=== PATIENT | female | born 1950 | race Caucasian/White ===

== ENCOUNTER → 2019-08-08 10:26 | Outpatient (CLI) | payer MEDICARE, OTHER, SELFPAY ==
--- NOTE | 2019-08-08 | DI.NM.S_ITS ---
PROCEDURE: NM BONE SCAN WHOLE BODY RADIOPHARMACEUTICAL: 21.4 mCi Tc-99m MDP IV. INDICATIONS: Pain due to internal orthopedic prosthetic devices TECHNIQUE: Delayed whole-body scintigrams were obtained approximately 3-4 hours after intravenous injection of radiotracer. Anterior and posterior views were acquired from vertex to feet. Additional left and right oblique views of the pelvis were obtained. COMPARISON: [facility] [place], [place], XR PELVIS WITH LATERAL HIP LEFT, 07/30/2019, 11:47. FINDINGS: Over the axial and appendicular skeleton no acute disease is found. There is, however, asymmetric hip joint isotope uptake along the acetabulum, mild on the right where mild hip joint osteoarthritis is present on plain film imaging dated 07/30/19. There also is an asymmetric increased prominence of bone scan isotope uptake along the acetabular borders of the left total hip arthroplasty, but not along the femoral component of this prosthetic device. Overall, the appearance is most consistent with reactive change along the acetabular component without evidence of femoral component loosening or adjacent infection. IMPRESSION: Expected mild osteoarthritic isotope uptake at the right hip. Asymmetric prominence of isotope uptake at the left hip in this patient with left total hip arthroplasty. No abnormal isotope uptake along the margins of the femoral component of the arthroplasty. The likelihood of infection producing the abnormality seen along the acetabular component without any femoral involvement is considered relatively low. Some degree of mobility of the acetabular component within the ely shoshone acetabulum is the likely cause for this degree of isotope uptake, however. Dictated by: Keenan Padilla M.D. on 08/08/2019 at 17:09 Approved by: Keenan Padilla M.D. on 08/08/2019 at 17:15
== END ==
PROVIDERS: PCP Family Medicine; Referring Provider Orthopaedic Surgery; Visit Provider Orthopaedic Surgery
DX: T84.84XA Pain due to internal orthopedic prosthetic devices, implants and grafts, initial encounter (principal); M16.11 Unilateral primary osteoarthritis, right hip
CPT/HCPCS: 78306; A9503

== ENCOUNTER → 2019-08-13 09:50 | Outpatient (CLI) | payer MEDICARE, OTHER, SELFPAY ==
[2019-08-13 09:59] LABS: Bacteria Urine None Seen; WBC Urine None Seen (0-5/HPF)
[2019-08-13 10:57] LABS: Hemoglobin A1C% w Est Avg Glu 5.5 % (4.0-6.0)
[2019-08-13 11:13] LABS: Erythrocyte Sedimentation Rate 6 MM/HR (0-20)
[2019-08-13 11:16] LABS: Add Manual Diff / Slide Review NO; Basophils Absolute Auto 0 /uL (0-100); Eosinophils Absolute Auto 100 /uL (0-450); Eosinophils Percent Auto 1.7 % (2-4); Hematocrit 39.4 % (36-46); Hemoglobin 13.2 g/dL (12.0-16.0); Lymphocytes Absolute Auto 1300 /uL (1100-4500); Lymphocytes Percent Auto 30.4 % (25-40); Mean Corpuscular HGB Conc 33.6 % (30-36); Mean Corpuscular Hemoglobin 30.5 PG (26-34); Mean Corpuscular Volume 90.7 fL (80-100); Monocytes Absolute Auto 600 /uL (0-900); Monocytes Percent Auto 12.7 % (3-14); Neutrophils Absolute Auto 2400 /uL (1500-7000); Neutrophils Percent Auto 54.2 % (50-75); Platelet Count 284 X10^3/uL (150-400); Red Blood Cell Count 4.34 X10^6/uL (4.0-5.2); White Blood Cell Count 4.4 X10^3/uL (4.5-11.0)
[2019-08-13 11:20] LABS: Appearance Urine UA CLEAR; Bilirubin Urine UA NEGATIVE (NEGATIVE); Color Urine UA YELLOW; Glucose Urine UA NEGATIVE (Negative); Ketones Urine UA NEGATIVE (NEGATIVE); Leukocyte Esterase Urine UA NEGATIVE (NEGATIVE); Nitrite Urine UA NEGATIVE (Negative); Occult Blood Urine UA 1+ (Negative); Protein Urine UA NEGATIVE (Negative); Urobilinogen Urine UA 0.2 E.U./dL (0.2)
[2019-08-13 11:22] LABS: Blood Urea Nitrogen 9 mg/dL (7-17); C-Reactive Protein Quant < 0.5 mg/dL (<1.0); Calcium 10.2 mg/dL (8.4-10.2); Carbon Dioxide 29 mmol/L (22-32); Chloride 100 mmol/L (98-107); Estimated Glomerular Filt Rate > 60.0 mL/min (>60); Glucose 134 mg/dL (80-110); HEMOLYSIS < 15 (0-50); Potassium 3.9 mmol/L (3.4-5.1); Sodium 139 mmol/L (137-145)
[2019-08-13 11:31] LABS: RBC Urine 0-1/HPF (0-5/HPF)
[2019-08-13 11:32] LABS: Culture Indicated Urine Cult Not Indicated
== END ==
PROVIDERS: PCP Family Medicine; Referring Provider Orthopaedic Surgery; Visit Provider Orthopaedic Surgery
DX: Z01.818 Encounter for other preprocedural examination (principal); Z01.812 Encounter for preprocedural laboratory examination; N39.9 Disorder of urinary system, unspecified; Z13.1 Encounter for screening for diabetes mellitus; R73.9 Hyperglycemia, unspecified
CPT/HCPCS: 36415; 80048; 81001; 83036; 85025; 85651; 86140; 93005; 93010

== ENCOUNTER 2022-11-04 11:09 | Emergency (ER) | payer MEDICARE, OTHER, SELFPAY ==
[2022-11-04] VITALS (10 sets, daily range): BP systolic 143–173; BP diastolic 65–84; PULSE 77–102; RESP 15–18; TEMP 36.8; O2SAT 97–100; BMI 21.9
--- NOTE | 2022-11-04 11:29 | DI.RAD.S_ITS ---
PROCEDURE: XR WRIST RT MIN 3V INDICATIONS: fall with wrist pain, obvious deformity TECHNIQUE: Four views of the wrist were acquired. COMPARISON: None. FINDINGS: Bones: Decreased mineralization. There is an impacted, slightly comminuted, intra-articular fracture involving the distal radius. There is extension to the articular surface. Mild dorsal tilt is seen. No radiocarpal dislocation. Distal radioulnar joint appears intact. Possible triquetral fracture. Soft tissues: No suspicious soft tissue calcifications. IMPRESSION: 1. Mildly comminuted, impacted, and angulated distal radius fracture. 2. Possible triquetral fracture. 3. No dislocation. Dictated by: Kristen Krishna M.D. on 11/04/2022 at 12:08 Approved by: Kristen Krishna M.D. on 11/04/2022 at 12:10
--- NOTE | 2022-11-04 11:29 | DI.CT.S_ITS ---
PROCEDURE: CT HEAD/BRAIN WO CON INDICATIONS: fall with head injury TECHNIQUE: Noncontrast 4.5 mm thick angled axial sections acquired from the foramen magnum to the vertex, with coronal and sagittal reformats. For radiation dose reduction, the following was used: automated exposure control, adjustment of mA and/or kV according to patient size. COMPARISON: None. FINDINGS: Image quality: Decreased due to beam hardening artifact from right temporoparietal implant. CSF spaces: Basal cisterns are patent. No extra-axial fluid collections. The ventricles are symmetric in size and shape. Brain: Right posterior temporal region is obscured by metallic artifact No intracranial bleeds or masses. There is cerebral volume loss for age, with resultant ventricular and sulcal prominence. There are periventricular and deep white matter chronic small vessel ischemic changes. There is intracranial internal carotid artery atherosclerosis. Skull and face: Right retroauricular/posterior temporal subcutaneous metallic cochlear implant. Calvarium and visualized facial bones appear intact, without suspicious lesions. Sinuses: Visualized sinuses and mastoids are clear. IMPRESSION: 1. Given slight limitations due to metallic artifact, no CT evidence of acute intracranial trauma. 2. Right retroauricular cochlear implant. Subcutaneous tissues and underlying calvarium are otherwise normal. Dictated by: Kristen Krishna M.D. on 11/04/2022 at 11:32 Approved by: Kristen Krishna M.D. on 11/04/2022 at 11:35
--- NOTE | 2022-11-04 11:29 | DI.CT.S_ITS ---
PROCEDURE: CT CERVICAL SPINE WO CON INDICATIONS: fall with head injury TECHNIQUE: Noncontrast 3 mm thick sections acquired from the skull base to the T4 level. Sagittal and coronal reformats were then constructed. For radiation dose reduction, the following was used: automated exposure control, adjustment of mA and/or kV according to patient size. COMPARISON: None. FINDINGS: Image quality: Excellent. Bones: No fractures or dislocations. Mild degenerative disc height loss C4-5, C5-6, and C6-7 with minor uncovertebral joint hypertrophy and posterior endplate spurs. Visualized superior ribs are intact. Soft tissues: Prevertebral soft tissues are normal in thickness. No paravertebral hematomas. No apical pneumothoraces. IMPRESSION: 1. No CT evidence of acute cervical spine trauma. 2. Mild disc and endplate degenerative change. Dictated by: Kristen Krishna M.D. on 11/04/2022 at 11:35 Approved by: Kristen Krishna M.D. on 11/04/2022 at 11:38
--- NOTE | 2022-11-04 11:54 | ED.FALL ---
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 She states that she was carrying some items up a few stairs and lost her balance and fell backwards, briefly striking her head but primarily injuring her right wrist. She denies any loss of consciousness and has full recall of the event. She denies nausea, vomiting or neck pain. She is not dizzy nor weak or lightheaded. She denies other prodromal symptoms such as chest pain, palpitations or shortness of breath. She has pain, swelling and bruising at her right wrist with an obvious deformity. She has decreased range of motion secondary to pain and mechanical obstruction Related Data Previous Rx's Medication Instructions Recorded hydrocodone 5 mg-acetaminophen 325 1 tab PO Q4-6H PRN pain #20 tabs 11/04/22 mg tablet Allergies Allergy/AdvReac Type Severity Reaction Status Date / Time chlorzoxazone Allergy Severe SWELLING Verified 11/04/22 11:17 [From Shey Lacey DSC] formaldehyde Allergy Unknown Verified 11/04/22 11:17 latex Allergy Unknown Verified 11/04/22 11:17 Review of Systems Review of Systems Narrative: GENERAL: Denies chills, fatigue, malaise, fever, sweats. HEENT: Denies sinus pain, ear pain, sore throat, difficulty swallowing, dizziness. RESPIRATORY: Denies dyspnea, cough, wheezing, hemoptysis, sputum. CARDIOVASCULAR: Denies chest pain, palpitations, orthopnea, edema, GASTROINTESTINAL: Denies nausea, vomiting, abdominal pain, diarrhea, constipation, melena. : Denies dysuria, frequency, incontinence, hematuria, urinary retention. MUSCULOSKELETAL: See HPI SKIN: Denies rash, skin lesions, or other NEUROLOGIC: See HPI PSYCHIATRIC: No concerning psychosocial issues. 12 point review of systems is negative except for those stated above Patient History Medical History Anxiety (~1999) Chicken pox Fractures (~2004) Headache Hearing loss Hemorrhoid Measles Mumps Palpitations Partial blindness (~1996) Tinnitus Surgical History Anesthesia History of cataract removal with insertion of prosthetic lens (~2010) History of cochlear implant (~2014) History of hip replacement (~2004) History of tonsillectomy Status post dilation and curettage Family History Father Heart disease Cardiac arrhythmia Mother Cancer Hypertension Mental health problem Parkinson disease Grandfather Larynx cancer Grandmother Breast cancer Sister Age: 69 Mental health problem Usher syndrome Social History Smoking Status: Former smoker Smoking Status: Former smoker alcohol intake frequency: holidays/special occasions only Substance Use Type: does not use Exam Narrative Exam Narrative: GENERAL: [72] year old patient appears stated age. Well-developed patient, in mild distress. GCS 15 HEAD: Minimal dried blood at the superior aspect of cochlear implant, no hematoma, abrasion or laceration otherwise, no other swelling or evidence of depressed skull fracture EYES: Pupils equal round and reactive. No hyphema Extraocular motions intact. No scleral icterus. No injection or drainage. ENT: Nose without bleeding, purulent drainage. No nasal septal hematoma Throat without erythema, tonsillar hypertrophy or exudate. Airway patent. NECK: Trachea midline. Non tender no midline tenderness or step-offs CARDIOVASCULAR: Regular rate and rhythm without murmurs, gallops, or rubs. RESPIRATORY: Clear to auscultation. Breath sounds equal bilaterally. No wheezes, rales, or rhonchi. GASTROINTESTINAL: Abdomen soft, non-tender, nondistended. EXTREMITIES: Decreased range of motion at right wrist, obvious deformity, significant swelling ecchymosis, this is closed and neurovascularly intact BACK: Nontender without deformity or crepitance. No flank tenderness. NEURO: AOx3. SKIN: No rash or erythema of visible areas Initial Vital Signs Initial Vital Signs: Vital Signs Temperature 98.2 F 11/04/22 11:11 Pulse Rate 97 H 11/04/22 11:11 Respiratory Rate 15 11/04/22 11:11 Blood Pressure 173/84 H 11/04/22 11:11 Pulse Oximetry 98 11/04/22 11:11 Oxygen Delivery Method Room Air 11/04/22 11:11 Procedures Orthopedic Fracture Reduction Fracture #1: Time Out Performed: Yes Side: right Fracture Reduction Location: radius Analgesia: hematoma block Technique: direct manipulation Post-reduction neuro exam: intact Post-reduction vascular exam: intact Splint Applied: Yes Patient Tolerated Procedure: Well Orthopedic Splinting/Casting Injury #1: Side: right Upper Extremity Injury Location: wrist Upper Extremity Immobilizer: sugar tong splint Post splinting neuro exam: intact Post splinting vascular exam: intact Placed by: Provider Course Orders Ordered: ED Orders 11/04/22 11:29 CT cervical spine wo con Stat CT head/brain wo con Stat XR wrist RT min 3V Stat Vital Signs Vital signs: Vital Signs - 8 hr 11/04/22 11:11 Temperature 98.2 F Pulse Rate 97 H Respiratory Rate 15 Blood Pressure 173/84 H Pulse Oximetry 98 Oxygen Delivery Method Room Air MDM - Fall MDM Narrative Medical decision making narrative: [72] year old patient presents with fall resulting in right wrist injury Multiple etiologies for patient's symptoms considered including, but not limited to: [Fracture versus dislocation versus contusion versus intracerebral hemorrhage versus other] Prior Charts reviewed in our EMR Primary Historian: patient Imaging reviewed: Distal radius fracture with comminution and joint involvement Patient's symptoms improved over duration of stay with above-stated therapies. Findings and discharge diagnosis discussed with patient/family followed by verbalization of understanding Return precautions discussed with patient/family whom verbalize understanding of diagnosis and plan Discharge Plan Departure Patient Disposition: Home Clinical Impression: Closed fracture of right distal radius Instructions: How to Prevent Falls, DI for Distal Radius Fracture Activity Restrictions/Additional Instructions: *You have been diagnosed with [comminuted distal radius fracture] *What to do: *Please continue to take your regular medications as directed. [ x] New medication prescriptions sent to your pharmacy: [[facility] ] [ ] New medication written as a paper prescription [x] Tylenol and occasional Motrin for pain *Please follow up with [ Brandi] of [facility] in 2-3 days, call for an appointment. Let them know you were seen in the Emergency Department and that we ask that you be seen in follow up. We will electronically transmit a record of today's note if your PCP is in our system *Return to Emergency Department if you should have any new, worsening or concerning symptoms, such as [worsening pain, significant swelling, cold extremities, numbness, tingling, weakness or other bothersome symptoms Splint Care: Keep splint clean and dry. Elevated affected body part to decrease swelling. OK to use ice pack on the affected body part. Use for 15-20 minutes each time, for 5-6x per day. If you develop worsening pain, numbness, tingling, discoloration of the affected body part, loosen the splint by loosening the ADDI wrap, and either see your doctor for an urgent re-assessment, or return to the Emergency Department. Return to the Emergency Department for any new or worsening symptoms. You have been prescribed a short course of narcotic medications. These are potentially dangerous and addictive medications that should be used carefully. While on these medications you cannot drive or operate heavy machinery. Additionally, you cannot sign legal documents or perform any duties such as this. Many people get constipated on narcotic medications so it would be advisable to discuss stool softeners with the pharmacist when you tack picker your prescription. Please understand that we cannot provide further refills of narcotics or controlled substances through the ED and your pain management will need to be through your Primary Care Provider Prescriptions: New hydrocodone-acetaminophen 5-325 mg tablet 1 tab PO Q4-6H PRN (Reason: pain) Qty: 20 0RF Referrals: Jose Paz MD [Physician] - Evgeny Marley MD [Primary Care Provider] - Stand Alone Forms: Patient Portal/API
[2022-11-04] MEDS: LIDOCAINE 1% 20 ML (13:36)
--- NOTE | 2022-11-04 13:37 | PC.NURSE ---
Lido pulled from pixis by physician, drawn up and administered by same.
== END 2022-11-04 14:45 | disposition home or self-care (01) ==
PROVIDERS: Emergency Provider Emergency Medicine; PCP Family Medicine
DX: S52.501A Unspecified fracture of the lower end of right radius, initial encounter for closed fracture (principal); S09.90XA Unspecified injury of head, initial encounter; W10.9XXA Fall (on) (from) unspecified stairs and steps, initial encounter
CPT/HCPCS: 25605; 70450; 72125; 73110; 99283

== ENCOUNTER 2022-11-23 11:11 | Day surgery (SDC) | payer MEDICARE, OTHER, SELFPAY ==
[2022-11-21 08:24] VITALS: BMI 21.9
[2022-11-23] VITALS (12 sets, daily range): BP systolic 122–160; BP diastolic 76–106; PULSE 75–111; RESP 8–19; TEMP 36.6–37; O2SAT 91–100; BMI 21.1
[2022-11-23] MEDS: LACTATED RINGERS 1,000 ML 42 ML IV (12:11)
--- NOTE | 2022-11-23 12:21 | PM.PREOP ---
Pre-operative Note Interval Note History & Physical reviewed/Exam performed by Physician: Yes Changes to H&P: No
[2022-11-23] MEDS: CEFAZOLIN VIAL 1 GM in SODIUM CHLORIDE 0.9% 100 ML IV (12:55)
--- NOTE | 2022-11-23 13:12 | SUR.OPER ---
Supine on padded OR bed, head on pillow, arms secured on padded arm boards at <90 degrees abduction, legs uncrossed, safety belt at thigh, tape over blanket over lower legs. operitive arm on hand table
--- NOTE | 2022-11-23 14:01 | PM.OP.1 ---
Operative Date/Time/Diagnoses Date of procedure: 11/23/22 Time of procedure: 13:00 Pre-op diagnosis: Right intra-articular distal radius fracture Post-op diagnosis: same Procedure & Clinicians Procedure: Open reduction internal fixation of a right distal radius fracture CPT code 58179 Same procedure as scheduled: Yes Indications: Displaced intra-articular distal radius fracture Surgeon: Jignesh Hogue Click Yes if Unassisted: Yes Anesthesia Type: General Operative Notes Findings: Displaced intra-articular distal radius fracture Closure Type: primary Applied: implant(s) (Arthrex distal radius plate) Estimated Blood Loss (mL): 10 Tourniquet time (min): 46 Procedure in detail: On date of service, patient was met in the holding area where the operative site was signed and witnessed by the OR staff. The surgery was once again discussed with the patient and any remaining questions or concerns were answered to the patient's full satisfaction. Time-out was performed verifying patient's name procedure and operative site. Patient was taken back to the operating theater and placed on the operating table in a supine position. Great care was taken to ensure that all bony prominences were appropriately padded. Well-padded tourniquet was placed up along the upper extremity. Another time-out was performed verifying patient's name, procedure, and operative site. The upper extremity was then prepped and draped in the normal sterile fashion. Esmarch was used to exsanguinate the limb and the tourniquet was turned up to 250 mm of mercury. Fifteen blade was used to expose the distal radius. An incision was made over the FCR tendons. The FCR tendon was retracted and the floor of the tendon was opened with a 15 blade. The FPL tendon and muscle belly was retracted ulnarly giving us good visualization of the pronator quadratus. The pronator quadratus was excised off the distal radius using the 15 blade and then finished with a periosteal elevator. Next the brachia radialis attachment to the radial styloid was released to help with overall reduction. Retractors were placed allowing us good visualization of the distal radius as well as the shaft. A reduction maneuver was performed and a K-wire was placed holding a provisional reduction of the intra-articular distal radius fracture. C-arm was brought in to verify overall reduction. Once we were satisfied with the overall reduction, a plate was placed and held provisionally with K-wires. C-arm was once again used to verify plate positioning as well as reduction. The plate was then fixated to the distal fragment using locking screws. Lateral C-arm views were used to verify that the screws were not intra-articular or broaching the dorsal cortex. At this point we are able to use the plate to help fine tune the overall reduction. Once we were satisfied with the overall reduction the plate was then secured to the shaft with a combination of locking and nonlocking screws. Final x-rays were obtained. The wound was copiously irrigated and closed in a layered fashion. The wrist and hand were cleaned dried dressed. Patient was placed into a splint and taken to the PACU in stable condition. Post-operative Condition: stable Disposition: PACU Plan for aftercare: Patient will follow our postoperative protocol for distal radius fracture. No restrictions to range of motion of the wrist or fingers.
[2022-11-23] MEDS: MEPERIDINE 50 MG/ML INJ 25 MG IV (14:22)
--- NOTE | 2022-11-23 14:34 | SUR.PHASEI ---
Patient had increasing shaking while in Phase1. Her heart rate became elevated into the 120's and she continued to shake. Patient was also expressing anxiety about the shaking. Dr Olson was notified and he ordered Demerol. The shaking went away within 10 minutes of receiving the Demerol. patient also looked much more relaxed.Will continue to monitor.
[2022-11-23] MEDS: ONDANSETRON 4 MG/2 ML INJ IV (15:24)
== END 2022-11-23 15:55 | disposition home or self-care (01) ==
PROVIDERS: PCP Family Medicine; Referring Provider Orthopaedic Surgery; Visit Provider Orthopaedic Surgery
PROC: (CPT 25609; principal; 2022-11-23 12:45)
DX: S52.571A Other intraarticular fracture of lower end of right radius, initial encounter for closed fracture (principal); W10.9XXA Fall (on) (from) unspecified stairs and steps, initial encounter
CPT/HCPCS: 25609; C1713; J0690; J1100; J2175; J2405; J2704; J3010

== ENCOUNTER → 2022-12-18 14:00 | Outpatient (CLI) | payer MEDICARE, OTHER, SELFPAY ==
[2022-12-19 21:30] LABS: Clostridium Difficile Tox PCR Negative for C. diff (Negative)
[2022-12-23 12:29] LABS: Calprotectin, Stool 140 ug/g (0-120)
== END ==
PROVIDERS: PCP Family Medicine; Referring Provider Family Medicine; Visit Provider Family Medicine
DX: K52.9 Noninfective gastroenteritis and colitis, unspecified (principal); R63.4 Abnormal weight loss; K22.70 Barrett's esophagus without dysplasia
CPT/HCPCS: 83993; 87177; 87493

== ENCOUNTER → 2023-01-02 11:15 | Outpatient (CLI) | payer MEDICARE, OTHER, SELFPAY ==
[2023-01-02 20:26] LABS: Appearance Urine UA CLEAR; Bilirubin Urine UA NEGATIVE (NEGATIVE); Color Urine UA YELLOW; Glucose Urine UA NEGATIVE (Negative); Ketones Urine UA NEGATIVE (NEGATIVE); Leukocyte Esterase Urine UA NEGATIVE (NEGATIVE); Nitrite Urine UA NEGATIVE (Negative); Occult Blood Urine UA NEGATIVE (Negative); Protein Urine UA NEGATIVE (Negative); Specific Gravity Urine UA <=1.005 (1.000-1.035); Urobilinogen Urine UA 0.2 E.U./dL (0.2)
[2023-01-02 20:32] LABS: Add Manual Diff / Slide Review NO; Alanine Aminotransferase 11 IU/L (<35); Albumin 4.3 g/dL (3.5-5.0); Albumin Globulin Ratio 1.4 (1.0-2.8); Alkaline Phosphatase 66 U/L (38-126); Aspartate Aminotransferase 18 IU/L (14-36); BUN Creatinine Ratio 19.7 (6-22); Basophils Absolute Auto 0 /uL (0-100); Basophils Percent Auto 0.7 % (0-2); Bilirubin Total 0.5 mg/dL (0.2-1.3); Blood Urea Nitrogen 12 mg/dL (7-17); Calcium 9.6 mg/dL (8.4-10.2); Carbon Dioxide 30 mmol/L (22-32); Chloride 99 mmol/L (98-107); Eosinophils Absolute Auto 100 /uL (0-450); Eosinophils Percent Auto 1.3 % (2-4); Estimated Glomerular Filt Rate > 60 mL/min (>60); Glucose 92 mg/dL (80-110); HEMOLYSIS 16 (0-50); Hematocrit 39.4 % (36-46); Lymphocytes Absolute Auto 1200 /uL (1100-4500); Lymphocytes Percent Auto 22.2 % (25-40); Mean Corpuscular HGB Conc 32.8 % (30-36); Mean Corpuscular Hemoglobin 30.2 PG (26-34); Mean Corpuscular Volume 92.1 fL (80-100); Monocytes Absolute Auto 700 /uL (0-900); Monocytes Percent Auto 12.5 % (3-14); Neutrophils Absolute Auto 3600 /uL (1500-7000); Neutrophils Percent Auto 63.3 % (50-75); Platelet Count 270 X10^3/uL (150-400); Potassium 4.1 mmol/L (3.4-5.1); Red Blood Cell Count 4.28 X10^6/uL (4.0-5.2); Red Cell Distribution Width 13.9 % (11.6-14.8); Sodium 136 mmol/L (137-145); Total Protein 7.3 g/dL (6.3-8.2); White Blood Cell Count 5.6 X10^3/uL (4.5-11.0)
[2023-01-02 21:12] LABS: TSH w/ Reflex to FT4 0.85 uIU/mL (0.47-4.68)
== END ==
PROVIDERS: PCP Family Medicine; Visit Provider Family Medicine
DX: G43.909 Migraine, unspecified, not intractable, without status migrainosus (principal); F41.9 Anxiety disorder, unspecified; K22.70 Barrett's esophagus without dysplasia; K52.9 Noninfective gastroenteritis and colitis, unspecified; R63.4 Abnormal weight loss
CPT/HCPCS: 80053; 81003; 84443; 85025

== ENCOUNTER 2023-06-20 12:23 | Day surgery (SDC) | payer MEDICARE, OTHER, SELFPAY ==
--- NOTE | 2023-06-20 | PATH_ITS ---
[facility] Accession Number: [id number] No. of containers..02 Tissue . 01 Material submitted: . PART A: small bowel - SMALL BOWEL PART B: colon - RANDOM COLON . 01 Clinical history: . B) FOR DIARRHEA . 01 Diagnosis: A. Small Bowel, Biopsy: Duodenal mucosa with no diagnostic abnormality. Negative for active inflammation, features of sprue, dysplasia, or malignancy. . B. Random Colon, Biopsy: Colonic mucosa with increased intraepithelial lymphocytes, consistent with lymphocytic colitis. Negative for granulomas, dysplasia and malignancy. . JNL 06/22/2023 1324 Local . 01 Electronically signed: . Sue Nieto MD, Pathologist NPI- [id number] . 01 Gross description: . Part A: SMALL BOWEL: Received in formalin is 2 fragment(s) of senior, soft tissue measuring 0.3 x 0.2 x 0.1 cm to 0.2 x 0.2 x 0.1 cm submitted entirely in 1 cassette(s) Part B: RANDOM COLON: Received in formalin is multiple fragment(s) of senior, soft tissue measuring 1.0 x 0.5 x 0.1 cm in aggregate submitted entirely in 1 cassette(s) /AAY 06/21/2023 0522 Local . 01 Pathologist provided ICD-10: K52.89 . 01 CPT . 847151, 640276 Specimen Comment: A courtesy copy of this report has been sent to [phone] Performed at: 01 [facility] [address] [place] [address] [address], [place], [place] [id number] MD Ash Johnson MD Phone: [phone]
[2023-06-20] MEDS: LACTATED RINGERS 1,000 ML 84 ML IV (14:17)
[2023-06-20 14:23] VITALS: BP 144/79; PULSE 84; RESP 16; TEMP 36.7; O2SAT 100
--- NOTE | 2023-06-20 14:39 | PM.HP.1 ---
History of Present Illness History of Present Illness Chief complaint: EGD/Colonoscopy Narrative: Diarrhea [facility] Medical History (Updated 12/15/22 @ 11:23 by Rodney Morales MD) Usher syndrome (~1979) Headache Fractures (~2004) Mumps Measles Chicken pox Tinnitus Hearing loss Partial blindness (~1996) Hemorrhoid Palpitations Anxiety (~1999) Surgical History Anesthesia History of cochlear implant (~2014) History of cataract removal with insertion of prosthetic lens (~2010) History of hip replacement (~2004) Status post dilation and curettage History of tonsillectomy Family History Father Heart disease Cardiac arrhythmia Mother Cancer Hypertension Mental health problem Parkinson disease Grandfather Larynx cancer Grandmother Breast cancer Sister Age: 69 Mental health problem Usher syndrome Social History household members: spouse Smoking Status: Former smoker alcohol intake: current Meds Home Medications and Allergies Home Medications Medication Instructions Recorded Confirmed Type No Known Home Medications 06/20/23 06/20/23 History Allergies Allergy/AdvReac Type Severity Reaction Status Date / Time chlorzoxazone Allergy Severe SWELLING Verified 06/20/23 14:33 [From Paranancy Lacey DSC] cinnamon Allergy Intermediate Blister Verified 06/20/23 14:33 poison ofelia extract Allergy Intermediate Blister Verified 06/20/23 14:33 poison oak extract Allergy Intermediate Blister Verified 06/20/23 14:33 formaldehyde Allergy Unknown Verified 06/20/23 14:33 latex Allergy Unknown Verified 06/20/23 14:33 Exam Vital Signs (past 8 hours): - 06/20/23 14:23 Temperature 98.0 F Pulse Rate 84 Respiratory Rate 16 Blood Pressure 144/79 H Pulse Oximetry 100 Oxygen Delivery Method Room Air Oxygen Delivery Method Room Air Narrative Exam Narrative: Oropharynx free of lesions Chest clear to auscultation percussion Cardiac exam reveals no S3 or murmur Assessment & Plan Assessment & Plan narrative: History of diarrhea rule out underlying colitis rule out gluten sensitive enteropathy. Risk, benefits, alternatives have been explained.
--- NOTE | 2023-06-20 14:40 | PM.OP.EC ---
Operative Date/Time/Diagnoses Date of procedure: 06/20/23 Pre-op diagnosis: See indication findings Procedure & Clinicians Study performed: EGD and colonoscopy Indications: Diarrhea Surgeon: Bri Moraes Procedure Notes Procedure in detail: After informed consent was obtained the patient was placed in left lateral decubitus position. Video upper scope was placed into the oropharynx and with the patient's help swelled into the esophagus. The esophagus stomach and duodenum were carefully examined. On withdrawal, retroflexed view the GE junction was performed. The patient was then turned and the colonoscope substituted. This was passed from the rectum up to the cecum. Preparation was good. On slow withdrawal mucosa was carefully examined. The scope was removed. The patient tolerated procedure well. Blood loss none Complications none Sedation mac Findings EGD 1. Normal esophagus 2. Normal stomach 3. Normal duodenal bulb and sweep biopsies taken to rule gluten sensitive enteropathy Colonoscopy 1. Extremely tortuous colon with very difficult to control loop in the splenic flexure 2. Otherwise negative colonoscopy to cecum. Biopsies taken to rule out microscopic colitis Patient is instructed to follow up with Isac Hunter in our office.
[2023-06-20 15:24] VITALS: BP 112/66; PULSE 66; RESP 13; TEMP 36.3; O2SAT 99
[2023-06-20 15:29] VITALS: BP 98/61; PULSE 67; RESP 12; TEMP 36.3; O2SAT 96
[2023-06-20 15:35] VITALS: BP 102/64; PULSE 57; RESP 13; O2SAT 96
[2023-06-20 15:41] VITALS: BP 132/66; PULSE 80; RESP 12; TEMP 36.3; O2SAT 99
[2023-06-20 16:00] VITALS: BP 138/84; PULSE 82; RESP 16; TEMP 36.6; O2SAT 99
== END 2023-06-20 16:00 | disposition home or self-care (01) ==
PROVIDERS: PCP Family Medicine; Referring Provider Internal Medicine Gastroenterology; Visit Provider Internal Medicine Gastroenterology
PROC: 0DJ08ZZ Inspection of Upper Intestinal Tract, Via Natural or Artificial Opening Endoscopic (ICD-10-PCS; CPT 43235; principal; 2023-06-20 15:00)
PROC: 0DJD8ZZ Inspection of Lower Intestinal Tract, Via Natural or Artificial Opening Endoscopic (ICD-10-PCS; CPT 45378; 2023-06-20 15:00)
DX: R19.7 Diarrhea, unspecified (principal); R63.4 Abnormal weight loss; Z87.19 Personal history of other diseases of the digestive system
CPT/HCPCS: 45380; 43239; J2704

== ENCOUNTER → 2023-08-15 14:36 | Outpatient (CLI) | payer MEDICARE, OTHER, SELFPAY ==
[2023-08-15 15:38] LABS: Appearance Urine UA CLEAR; Bilirubin Urine UA NEGATIVE (NEGATIVE); Color Urine UA YELLOW; Glucose Urine UA NEGATIVE (Negative); Ketones Urine UA NEGATIVE (NEGATIVE); Leukocyte Esterase Urine UA NEGATIVE (NEGATIVE); Nitrite Urine UA NEGATIVE (Negative); Occult Blood Urine UA 1+ (Negative); Protein Urine UA NEGATIVE (Negative); Urobilinogen Urine UA 0.2 E.U./dL (0.2)
[2023-08-15 15:38] LABS: Hemoglobin A1C% w Est Avg Glu 5.3 % (4.0-6.0)
[2023-08-15 15:44] LABS: Bacteria Urine None Seen; Culture Indicated Urine Cult Not Indicated; RBC Urine 1-5/HPF (0-5/HPF); Squamous Epithelial Cell Urine None Seen (0-5/HPF); Urine Volume 10mL (spun); WBC Urine None Seen (0-5/HPF)
[2023-08-15 15:49] LABS: BUN Creatinine Ratio 22.6 (6-22); Blood Urea Nitrogen 14 mg/dL (7-17); C-Reactive Protein Quant < 0.5 mg/dL (<1.0); Carbon Dioxide 29 mmol/L (22-32); Chloride 105 mmol/L (98-107); Estimated Glomerular Filt Rate > 60 mL/min (>60); Glucose 101 mg/dL (80-110); HEMOLYSIS < 15 (0-50); Potassium 4.9 mmol/L (3.4-5.1); Sodium 141 mmol/L (137-145)
[2023-08-15 15:56] LABS: Add Manual Diff / Slide Review NO; Basophils Absolute Auto 0 /uL (0-100); Basophils Percent Auto 0.4 % (0-2); Eosinophils Absolute Auto 0 /uL (0-450); Eosinophils Percent Auto 0.5 % (2-4); Hematocrit 37.9 % (36-46); Hemoglobin 12.7 g/dL (12.0-16.0); Lymphocytes Absolute Auto 1300 /uL (1100-4500); Lymphocytes Percent Auto 22.7 % (25-40); Mean Corpuscular HGB Conc 33.5 % (30-36); Mean Corpuscular Hemoglobin 31.1 PG (26-34); Mean Corpuscular Volume 92.9 fL (80-100); Monocytes Absolute Auto 800 /uL (0-900); Monocytes Percent Auto 13.6 % (3-14); Neutrophils Absolute Auto 3600 /uL (1500-7000); Neutrophils Percent Auto 62.8 % (50-75); Platelet Count 251 X10^3/uL (150-400); Red Blood Cell Count 4.08 X10^6/uL (4.0-5.2); Red Cell Distribution Width 13.7 % (11.6-14.8); White Blood Cell Count 5.7 X10^3/uL (4.5-11.0)
[2023-08-15 16:41] LABS: Erythrocyte Sedimentation Rate 15 MM/HR (0-20)
== END ==
PROVIDERS: PCP Family Medicine; Referring Provider Orthopaedic Surgery; Visit Provider Orthopaedic Surgery
DX: Z01.818 Encounter for other preprocedural examination (principal); R73.9 Hyperglycemia, unspecified; Z01.812 Encounter for preprocedural laboratory examination; N39.0 Urinary tract infection, site not specified; R70.0 Elevated erythrocyte sedimentation rate; R79.82 Elevated C-reactive protein (CRP)
CPT/HCPCS: 36415; 80048; 81001; 83036; 85025; 85651; 86140; 93005; 93010

== ENCOUNTER 2023-11-15 06:11 | Inpatient (IN) | payer MEDICARE, SELFPAY ==
[2023-11-15] VITALS (13 sets, daily range): BP systolic 121–159; BP diastolic 50–90; PULSE 68–107; RESP 12–18; TEMP 36.3–36.8; O2SAT 98–100; BMI 19.8
--- NOTE | 2023-11-15 | DI.RAD.S_ITS ---
PROCEDURE: XR PELVIS 1-2V INDICATIONS: INTER OPERATIVE LEFT HIP TECHNIQUE: Intra-operative view of the pelvis and hip acquired. COMPARISON: None. FINDINGS: Bones: Intraoperative devices prior to placement of arthroplasty prostheses are in expected positions. No fractures or suspicious bony lesions. Soft tissues: Overlying surgical retractors are present, along with other intraoperative changes. IMPRESSION: Expected intraoperative postsurgical change for left hip arthroplasty. Dictated by: Jazmine Casiano MD, PhD on 11/15/2023 at 9:28 Approved by: Jazmine Casiano MD, PhD on 11/15/2023 at 9:29
--- NOTE | 2023-11-15 06:00 | DI.RAD.S_ITS ---
PROCEDURE: XR HIP W PEL IF DONE LT 2V INDICATIONS: DONNA, left TECHNIQUE: AP pelvis and lateral view of the hip acquired. COMPARISON: None. FINDINGS: Bones: Patient is status post left hip arthroplasty, with hardware components in expected positions. The hip joint appears congruent. The visualized bony structures appear intact. Soft tissues: Overlying postoperative changes are noted. No suspicious soft tissue densities. IMPRESSION: Expected post-operative appearance of a hip arthroplasty. Dictated by: Jazmine Casiano MD, PhD on 11/15/2023 at 10:28 Approved by: Jazmine Casiano MD, PhD on 11/15/2023 at 10:28
[2023-11-15] MEDS: ACETAMINOPHEN 325 MG TABLET 975 MG PO (06:53)
[2023-11-15] MEDS: LACTATED RINGERS 1,000 ML 42 ML IV (06:53)
[2023-11-15] MEDS: CELECOXIB 200 MG CAPSULE PO (06:53)
[2023-11-15] MEDS: SODIUM CHLORIDE 0.9% FLUSH 10 ML IV (07:20)
[2023-11-15] MEDS: VANCOMYCIN 1,000 MG/200 ML PIGGYBACK 200 MG IV (07:27)
--- NOTE | 2023-11-15 07:33 | SUR.OPER ---
Lateral on padded OR bed. Gel axillary roll. Arms secured on padded armboard with pillow supporting top arm. Padded hip positioner braces x4 - anterior and posterior chest and pelvis. Additional gel pad used anterior pelvis. Gel pad under bottom leg from knee to foot and secured with tape over sheet.
--- NOTE | 2023-11-15 07:37 | PM.PREOP ---
Pre-operative Note Interval Note History & Physical reviewed/Exam performed by Physician: Yes Changes to H&P: No
[2023-11-15] MEDS: CEFAZOLIN 2 GM/100 ML PREMIX 100 ML IV ×3 (07:55→23:55)
[2023-11-15] MEDS: BUPIVACAINE LIPOSOME 266 MG/20 ML VIAL INJ (08:24)
[2023-11-15] MEDS: TRANEXAMIC ACID 1,000 MG VIAL 2000 MG INJ (08:25)
[2023-11-15] MEDS: BUPIVACAINE 0.25% (PF) 60 ML, EPINEPHrine 0.3 MG INJ (08:25)
--- NOTE | 2023-11-15 10:03 | PM.OP.1 ---
Operative Date/Time/Diagnoses Date of procedure: 11/15/23 Time of procedure: 08:00 Pre-op diagnosis: History of left hip unipolar for femoral neck fracture 19 years ago with secondary osteoarthritis acetabulum Post-op diagnosis: same Procedure & Clinicians Procedure: Conversion left hip unipolar replacement to total hip arthroplasty Same procedure as scheduled: Yes Indications: The patient has had progressively worsening left hip pain. She has a history of a left femoral neck fracture 19 years ago which was treated with a hemiarthroplasty. She has a several year history of worsening left hip pain With radiographic changes consistent with acetabular arthritis. Non-operative management has failed and the patient has requested total hip replacement. The risks, benefits and alternatives to surgery were discussed with the patient prior to proceeding. Risks discussed included, but were not limited to, failure to relieve pain, leg length discrepancy, dislocation, stiffness, infection, nerve damage, deep venous thrombosis, pulmonary embolism, stroke, coma, heart attack, permanent paralysis and , as well as the potential need for eventual revision of the prosthetic. Surgeon: Sun Wu Research Home Economist: Alexander Courtney Anesthesia Type: General and Spinal Operative Notes Findings: No evidence of femoral stem loosening, moderate synovitis, some inflammation in the acetabular lining with articular cartilage loss, no evidence of infection, adequate stability Closure Type: primary Specimen(s): other (Fluid for culture and tissue for culture and sensitivity) Prosthetic devices, grafts, tissues, transplants, or devices: Wu [employer] Nephew R3 cup size 50, dual mobility liner 38 x 28 inner liner, ceramic Biolox delta +5 Depuy head,two 6.5 mm screws Estimated Blood Loss (mL): 200 Blood products transfused: none Procedure in detail: The patient was seen in the pre-operative area, where the patient identified the left hip as the operative site and this was marked with my initials. The patient received pre-operative antibiotics and was taken to the operating room and placed on the operative table in the right lateral decubitus position after satisfactory anesthesia. A maritime engineer out was performed. The left leg was prepared from the ankle to the iliac crest with ChloroPrep in the usual fashion and draped through sterile drapes. A PA was used during the procedure and was essential for intraoperative retraction and safe implantation of the components. The hip was approached through an approximately 20 cm incision using the patient's prior incision centered over the greater trochanter and curving gently posteriorly as it went proximally. This was carried sharply to the fascia stan, which was divided and retracted with a self retaining retractor. The trochanteric bursa was excised with care being taken to avoid the sciatic nerve, which was identified and protected throughout the case. The short external rotators were incised and the capsulomuscular flap was raised and tagged for later repair. Fluid was sent from the joint. It was completely clear. The hip was dislocated, and the femoral head was removed. Dissection was carefully carried out around the acetabulum. There was minimal residual labrum. It was resected there was clear synovitis in the central area of the acetabulum but it looked most consistent with degenerative changes and not infection. Intraoperative culture of some of the bone and synovitic tissue from the acetabulum was sent for culture and sensitivity. Retractors were placed to expose the acetabulum. The labrum and central soft tissues were removed. Reaming was performed initially going up in 2 mm increments, then 1 mm increments until good bite was obtained with an odd sized reamer. The cup 1 mm larger than the last reamer was then inserted using the appropriate anteversion guides. It was further stabilized with 2 screws. A trial dual mobility liner was placed. A trial head and neck were then placed and the hip relocated and checked for leg length and stability. An intraoperative film confirmed the component position and no evidence of fracture. The patient was stable in the position of sleep, of squatting, and could be put through a range of motion with 45 degrees internal rotation without dislocation. At 90 degrees flexion, internal rotation to 70? was possible before dislocation. This was felt to be satisfactory and the appropriate components were opened, and the trials were removed. The acetabular liner was impacted into position. A brief Betadine soak was performed while trialing with head options. The hip was meticulously irrigated with normal saline. Finally the femoral head was impacted onto the stem. The acetabulum was cleared of all material and the hip relocated one final time. The capsulomuscular flap was then repaired to the greater trochanter though an awl hole using the tag sutures. The short external rotators were repaired with a nonabsorbable suture. The fascia stan was closed with Vicryl. The subcutaneous layer was closed with barbed sutures and SteriStrips. An Aquacel Ag dressing was applied and the patient was taken to recovery having tolerated the procedure well. Complications: none Post-operative Condition: stable Disposition: Acute Care Plan for aftercare: The patient will be maintained on a standard total hip replacement protocol with weight bearing as tolerated and posterior hip precautions. The patient will receive Aspirin and sequential compression devices for DVT prophylaxis. The patient will be discharged home when safe for the home environment.
[2023-11-15] MEDS: fentaNYL 100 MCG/2 ML INJ IV ×2 (10:10→10:14)
[2023-11-15] MEDS: IBUPROFEN 400 MG TABLET PO ×2 (11:01→22:27)
[2023-11-15] MEDS: ACETAMINOPHEN 325 MG TABLET 650 MG PO ×2 (11:01→22:27)
[2023-11-15] MEDS: LACTATED RINGERS 1,000 ML 100 ML IV (11:08)
--- NOTE | 2023-11-15 13:39 | PT.IIE ---
Current Diagnoses Unilateral post-traumatic osteoarthritis, left hip (11/15/23) Pain due to internal orthopedic prosthetic devices, implants and grafts, initial encounter (11/15/23) Surgery Performed Operation Date: 11/15/23 07:45 Actual Procedures p coversion, hemiarthoplasty, previous, hip, to total arthoplasty(Left) - Sun Wu MD Surgical History (Last Reviewed 11/15/23 @ 06:47 by Chela Melo, RN) H/O tooth extraction (10/2023) History of cataract removal with insertion of prosthetic lens (~2010) History of cochlear implant (~2014) History of hip replacement (~2004) History of hymenectomy (1970) History of open reduction and internal fixation (ORIF) procedure (11/23/22) History of tonsillectomy Status post dilation and curettage Medical History (Last Reviewed 11/15/23 @ 06:47 by Chela Melo, RN) Anxiety Chicken pox Fractures (~2004) Hemorrhoid Lymphocytic colitis Measles Mumps Palpitations Tinnitus Usher syndrome (~1979) Physical Therapy Inpatient Evaluation/Re-Eval M1 PT/OT-IP Prior Functional Status Start: 11/15/23 12:10 Freq: NEEDED Status: Active Protocol: Document 11/15/23 12:50 MB (Rec: 11/15/23 13:39 MB [id number]) Medical Review Prior Functional Status Medical History Reviewed Yes Diet/Fluid Consistency Regular Communication RUBY and low vision: need to look at pt and speak directly in front, facing patient Mobility and Gait I to mod I with RW Activities of Daily Living and IADL's Pt lives with her [place] [address] Social History Household Members spouse Living Arrangements House Number of Floors (Floors) One Floor Number of Stairs To Enter/Railing? 6 terrace type steps to enter with ability to use walker in between; 5 steps with right rail descend in living room Home Environment Standard Height Toilet,Tub/ Shower Home Equipment Front Wheel Walker,Raised Toilet Seat w/Armrests,Shower Seat without Backrest Employment Status Retired M2 PT-IP Current Condition Start: 11/15/23 12:10 Freq: NEEDED Status: Active Protocol: Document 11/15/23 12:50 MB (Rec: 11/15/23 13:39 MB [id number]) Physical Therapy Current Condition Current Condition Evaluation Date 11/15/23 Treatment Diagnosis Left posterior DONNA M3 PT-IP Subjective Start: 11/15/23 12:10 Freq: NEEDED Status: Active Protocol: Document 11/15/23 12:50 MB (Rec: 11/15/23 13:39 MB [id number]) Subjective Physical Therapy Visit Type Type Initial Evaluation Visit Start Time 12:50 Visit Stop Time 13:20 Number of MARKETING OPERATIONS CONSULTANT Visits 0 Physical Therapy Visit Comments Patient Comments Pt pleasant and agreeable to PT assessment, RUBY and low vision. Therapy Pain Assessment Pain When Pain Assessed At Rest Pain Present Pain Present Pain Reported Location hip Intensity 1 Scale Used Numeric (0 - 10) M4 PT-IP Mobility and Gait Start: 11/15/23 12:10 Freq: NEEDED Status: Active Protocol: Document 11/15/23 12:50 MB (Rec: 11/15/23 13:39 MB [id number]) PT-Bed Mobility Assessment Supine to Sit Supine to Sit Contact Guard Assistance,1 Person Assistance,Head of Bed Elevated,Bedrails Scooting Scooting to Edge of Bed Contact Guard Assistance Scooting Up and Down in Bed Contact Guard Assistance PT-Transfer Assessment Sit to and From Stand Sit to and from Stand Minimal Assistance,Use of Upper Extremities Equipment Transfer Assistive Device Gait Belt Orthotic/Prosthetic Devices or Brace: No Transfers Transfer Destination Bedside Commode Transfer Technique Stand Step Pivot Transfer Ability Level of Assist Minimal Assistance,1 Person Assistance,Use of Upper Extremities Comments Mobility Comments Stepping to the right to BSC, left with OT as pt needs further assistance and time with ADLs PT-Balance Assessment Sitting Balance and Reactions Static Sitting Balance Ability Good Dynamic Sitting Balance Ability Good Standing Balance and Reactions Static Standing Balance Ability Fair Dynamic Standing Balance Ability Fair Device Used PT support about waist and pt reaching for BSC M5 PT-IP Objective Assessments Start: 11/15/23 12:10 Freq: NEEDED Status: Active Protocol: Document 11/15/23 12:50 MB (Rec: 11/15/23 13:39 MB [id number]) Orientation Orientation/Cognition Level of Alertness Alert Orientation Name,Birthday,Situation Language Function Ability Hard of Hearing Safety Awareness Decreased Safety Awareness Memory Description No Deficits Noted Gross Range of Motion Upper Extremity ROM Impairments Defer to OT Lower Extremity ROM Assessment Left Impaired Impairments Ankle and knee functional Strength Lower Extremity Strength Assessment Left Impaired Hip Left not tested post-op Knee Functional Ankle Functional M6 PT-IP Treatment Start: 11/15/23 12:10 Freq: NEEDED Status: Active Protocol: Document 11/15/23 12:50 MB (Rec: 11/15/23 13:39 MB [id number]) Physical Therapy Treatment Exercises Exercises Ankle Pumps Education Education Provided Precautions,Weight Bearing Status,Post-Op Packet,Safety M7 PT-IP Assessment and Plan Start: 11/15/23 12:10 Freq: NEEDED Status: Active Protocol: Document 11/15/23 12:50 MB (Rec: 11/15/23 13:39 MB [id number]) PT Summary Assessment and Plan Potential Rehabilitation Potential Good Status of Condition at Evaluation Evolving Summary Impairments Pain,ROM,Strength,Balance, Sensation,Bed Mobility, Transfers,Gait,Activity Tolerance Progress Towards Goals Slow Progress due to Activity Tolerance Assessment Summary Pt is a 73 y/o female presenting with left hip weakness, decreased functional mobility and mild pain same day left DONNA. Pt is RUBY and has low vision and communication is best with speaking directly to patient in line of vision which is directly in front of her gaze. She mobilizes well in bed and requires min A for SPT to BSC . Once to BSC, she requires increased time for toileting d /t copious urination post-op with IV. Left with OT. She will benefit from ongoing PT to maximize functional I. She anticipates d[facility] with next date. Goals Bed Mobility Goal Independent Transfer Goal Independent,Front Wheeled Walker Gait Goal Independent,Front Wheel Walker Gait Distance 100 Other Goals Pt will ascend and descend threshold/terrace-type step x3 to mimic steps to get into home with RW and no more than CGA. Days to Meet Goals 3 Frequency of Treatment Frequency Of Treatment Twice a Day Treatment Plan Physical Therapy Treatment Plan Bed Mobility Training,Transfer Training,Gait Training, Therapeutic Exercise,Balance Retraining,Post Op Education, Discharge Planning, Neuromuscular Re-ed Precautions Posterior Hip Precautions No Hip Flexion > 90 degrees,No Hip Internal Rotation,No Hip Adduction Weight Bearing Status Weight Bearing Status Weight Bear as Tolerated Recommendations To Nursing Amount of Assist Needed 1 Person Assist Discharge Recommendations PT Discharge Recommendations Home with 01/01 Assist Available,Outpatient PT Transportation Needs at Discharge Private Vehicle
--- NOTE | 2023-11-15 13:46 | OT.IP.EVAL ---
Current Diagnoses Unilateral post-traumatic osteoarthritis, left hip (11/15/23) Pain due to internal orthopedic prosthetic devices, implants and grafts, initial encounter (11/15/23) Surgery Performed Operation Date: 11/15/23 07:45 Actual Procedures p coversion, hemiarthoplasty, previous, hip, to total arthoplasty(Left) - Sun Wu MD Past Medical History (Last Reviewed 11/15/23 @ 06:47 by Chela Melo, RN) Anxiety Chicken pox Fractures (~2004) Hemorrhoid Lymphocytic colitis Measles Mumps Palpitations Tinnitus Usher syndrome (~1979) Surgical History (Last Reviewed 11/15/23 @ 06:47 by Chela Melo RN) H/O tooth extraction (10/2023) History of cataract removal with insertion of prosthetic lens (~2010) History of cochlear implant (~2014) History of hip replacement (~2004) History of hymenectomy (1970) History of open reduction and internal fixation (ORIF) procedure (11/23/22) History of tonsillectomy Status post dilation and curettage Occupational Therapy Inpatient Evaluation/Re-Eval M1 PT/OT-IP Prior Functional Status Start: 11/15/23 13:57 Freq: NEEDED Status: Active Protocol: Document 11/15/23 13:58 [facility] (Rec: 11/15/23 14:20 [facility] [id number]) Medical Review Prior Functional Status Medical History Reviewed Yes Diet/Fluid Consistency Regular Communication [place] and low vision: need to look at pt and speak directly in front, facing patient Mobility and Gait I to mod I with RW Activities of Daily Living and IADL's Pt states able to do ADL and IADL needs with increased time due to poor vision. Social History Household Members spouse Living Arrangements House Number of Floors (Floors) One Floor Number of Stairs To Enter/Railing? 6 terrace type steps to enter with ability to use walker in between; 5 steps with right rail descend in living room Home Environment Standard Height Toilet,Tub/ Shower Home Equipment Front Wheel Walker,Raised Toilet Seat w/Armrests,Shower Seat without Backrest Employment Status Retired Additional Social History Comment Pt has deafness with cochlear implants and retinitis pigmentosa. M2 OT-IP Current Condition Start: 11/15/23 13:57 Freq: Status: Active Protocol: Document 11/15/23 13:58 [facility] (Rec: 11/15/23 14:20 [facility] [id number]) Occupational Therapy Current Condition Current Condition Evaluation Date 11/15/23 Treatment Diagnosis S/P L DONNA posterior approach Diagnosis Onset Date 11/15/23 Post Operative Precautions Posterior Hip Precautions No Hip Flexion > 90 degrees,No Hip Internal Rotation,No Hip Adduction M3 OT- IP Subjective and Pain Start: 11/15/23 13:57 Freq: Status: Active Protocol: Document 11/15/23 13:58 [facility] (Rec: 11/15/23 14:20 [facility] [id number]) OT- Subjective Occupational Therapy Visit Type Type Initial Evaluation Visit Start Time 12:51 Visit Stop Time 13:46 Occupational Therapy Visit Comments Patient Comments Pt agreed to get up and needing to use the BSC. Patient/Caregiver Goals TO go home. OT Pain Assessment Pain When Pain Assessed At Rest Pain Present Pain Present Pain Reported Location hip Intensity 1 Scale Used Numeric (0 - 10) M4 OT- IP ADL's Start: 11/15/23 13:57 Freq: Status: Active Protocol: Document 11/15/23 13:58 [facility] (Rec: 11/15/23 14:20 [facility] [id number]) OT [id number] Comments OT Self-Feeding Comments Not at meal time. OT ADL-Grooming Comments OT Grooming Comments Not performed. OT ADL-Oral Care Comments Oral Care Comments Not performed. OT ADL-Dressing General Eval Lower Body Dressing Ability Maximum Assistance Areas Needing Assistance Underpants/Brief,Socks Comments OT Dressing Comments Pt has poor vision and will not be able to use adaptive devices to assist with her LB dressing needs and will have to have her to assist. OT ADL-Toileting General Evaluation Toileting Ability Moderate Assistance Areas Needing Assistance Manage Clothing Comments OT Toileting Comments Educated pt on how to wipe and will be easier to wipe while standing in order to follow her hip precautions. Suggested may be best to have a BSC, and use of pads at night. Pt needing assist to get the brief over her feet and up over her hips. Educated best to hold onto the fww or surfaces with one hand for her balance while the other hand assists with the brief and hygiene needs. OT ADL-Bathing Comments OT Bathing Comments Educated pt on covering the dressing for showering needs and will need her to assist. M5 OT- IP IADL's Start: 11/15/23 13:57 Freq: Status: Active Protocol: Document 11/15/23 13:58 [facility] (Rec: 11/15/23 14:20 [facility] [id number]) OT-Instrumental Activities of Daily Living Deficits IADL Deficits Identified Deficits Home Safety Awareness Awareness of Need for Assistance at Home Good Awareness Home Safety Comments Do to pt's poor vision and decreased balance , pt's will have to assist with most fo her needs at this time. Meal Preparation Meal Preparation Caregiver Provides Assist Technical Analyst Technical Analyst Caregiver Provides Assist M6 OT- IP Functional Cognition Start: 11/15/23 13:57 Freq: Status: Active Protocol: Document 11/15/23 13:58 [facility] (Rec: 11/15/23 14:20 [facility] [id number]) Cognitive Factors Limiting Selfcare Function Cognitive Ability Level of Alertness Alert Patient Orientation Place,Situation Attention Span Ability Capable of Focused Attention, Capable of Sustained Attention Ability to Follow Commands Able to Follow One Step Commands Cognitive Comments Cognitive Assessment Comments Pt is very hard of hearing and decreased vision. Pt better able to understand when able to see your mouth and talking slowly but not too loud. Pt has good understanding of her needs once she is able to hear all the information so able to better understand her hip precautions. Pt has given permission for OT to touch her arm to be able to get her attention so able to better communicate with her. OT- Vision and Hearing OT- Hearing Assessment OT- Hearing Assessment Hearing Impaired,Use of Hearing Aids OT- Vision Assessment Vision History Low Vision Vision Assessment Comments Pt has tunnel vision and low vision. M7 OT- IP Mobility and Balance Start: 11/15/23 13:57 Freq: Status: Active Protocol: Document 11/15/23 13:58 [facility] (Rec: 11/15/23 14:20 [facility] [id number]) OT- Bed Mobility Assessment Supine to Sit Supine to Sit Assist Contact Guard Assistance Scooting Scooting to Edge of Bed Contact Guard Assistance OT-Transfer Assessment Sit to and From Stand Sit to and from Stand Minimal Assistance Transfers Transfer Ability Minimal Assistance Technique Transfer Destination Bed,Bedside Commode,Chair Transfer Technique Stand Step Pivot Devices Transfer Assistive Devices Gait Belt,Front Wheeled Walker Comments Mobility Comments CGA to help guide her LLE and help keep for internal rotation. OSMAN to stand to FWW and assist to guide the FWW and vc for hand and leg placement so able to follow her hip precautions. Educated her on sliding her LLE forwards especially when sitting on lower surfaces. OT- Balance Assessment Sitting Balance and Reactions Static Sitting Balance Ability Good Dynamic Sitting Balance Ability Good Standing Balance and Reactions Static Standing Balance Ability Fair Dynamic Standing Balance Ability Fair M8 OT- IP Objective Assessments Start: 11/15/23 13:57 Freq: Status: Active Protocol: Document 11/15/23 13:58 [facility] (Rec: 11/15/23 14:20 [facility] [id number]) OT Gross Range of Motion Upper Extremity Range of Motion Assessment Within Functional Limits OT Strength Upper Extremity Strength Assessment Within Functional Limits M9 OT- IP Assessment and Plan Start: 11/15/23 13:57 Freq: Status: Active Protocol: Document 11/15/23 13:58 [facility] (Rec: 11/15/23 14:20 [facility] [id number]) OT Summary Assessment and Plan Potential Rehabilitation Potential Excellent Analytic Complexity at Evaluation Low Summary OT Impairments Pain,Balance,Functional Mobility,Dressing,Toileting, Bathing,Toilet Transfers, Shower Transfers Progress Towards Goals Progressing Toward Goals Assessment Summary Pt low complexity and main barriers are steps, history of low and tunnel vision, and will now need assist from her to assist with most ADL and mobility needs so to best be able to follow her hip precautions. Pt needs increased time to understand and comprehend her precautions due to her deafness and blindness. Able to call her to come in for caregiver training at 9AM Sunday. Pt to go home with 24/ 7 assist and outpt PT. Goals Self-Feeding Goal Standby Assistance Grooming Goal Standby Assistance Dressing Goal Moderate Assistance Toileting Goal Minimal Assistance Bathing Goal Moderate Assistance Toilet Transfer Goal Contact Guard Assistance Shower Transfer Goal Minimal Assistance Patient/Caregiver Education Goal Demonstrate Post-Op Precautions,Caregiver Independent Assisting Patient Days to Meet Goals 5 Frequency of Treatment Frequency Of Treatment Once a Day Treatment Plan OT Treatment Plan ADL Training,Functional Mobility,Patient/Family Education,Discharge Planning Discharge Recommendations OT Discharge Recommendations Home with 24/7 Assist Available,Outpatient PT Home Equipment Needs BSC, tub bench? Transportation Needs at Discharge Private Vehicle
--- NOTE | 2023-11-15 14:42 | PC.NURSE ---
Patient arrived to room 213 today at 1045. She is Alert OX4. Very [place], using cochlear implant, hearing aid and lip reading. She also states at baseline her vision is very poor.She reports her pain at 6/10 initially but improved after po pain medications ibuprofen and tylenol. She denies pain after getting up to chair with PT. Aquacel dressing to posterior L hip is c/d/i. She voids this afternoon without difficulty. IVF LR at 100 ml/hr, SCD's on, encouraged IS use, call light in reach, bed/chair alarm, frequent rounding.
[2023-11-15] MEDS: hydrOXYzine HCL 25 MG TABLET PO (18:28)
--- NOTE | 2023-11-15 18:58 | PC.NURSE ---
PA notified as patient felled anxiety, flushed, and tachycardic at 126-130 BPM while up in chair. Pt's BP is 128/72. Received orders for prn hydroxizine and administered to pt. MD Wu at bedside evaluating patient this evening. Pt asymptomatic. Plan for caregiver training with at 9 a.m. tomorrow prior to discharge home.
[2023-11-15] MEDS: ASPIRIN EC 81 MG TABLET PO (20:42)
[2023-11-15] MEDS: OXYCODONE IR 5 MG TABLET PO (23:54)
[2023-11-16] MEDS: IBUPROFEN 400 MG TABLET PO ×2 (06:24→10:33)
[2023-11-16] MEDS: ACETAMINOPHEN 325 MG TABLET 650 MG PO ×2 (06:24→10:33)
--- NOTE | 2023-11-16 06:58 | PM.DS.1 ---
History of Present Illness History of Present Illness Date Patient Seen: 11/16/23 Time Patient Seen: 06:58 Chief complaint: Left Total Hip Arthroplasty Revision Narrative: Operative Date/Time/Diagnoses Date of procedure: 11/15/23 Time of procedure: 08:00 Pre-op diagnosis: History of left hip unipolar for femoral neck fracture 19 years ago with secondary osteoarthritis acetabulum Post-op diagnosis: same Procedure & Clinicians Procedure: Conversion left hip unipolar replacement to total hip arthroplasty Same procedure as scheduled: Yes Indications: The patient has had progressively worsening left hip pain. She has a history of a left femoral neck fracture 19 years ago which was treated with a hemiarthroplasty. She has a several year history of worsening left hip pain With radiographic changes consistent with acetabular arthritis. Non-operative management has failed and the patient has requested total hip replacement. The risks, benefits and alternatives to surgery were discussed with the patient prior to proceeding. Risks discussed included, but were not limited to, failure to relieve pain, leg length discrepancy, dislocation, stiffness, infection, nerve damage, deep venous thrombosis, pulmonary embolism, stroke, coma, heart attack, permanent paralysis and , as well as the potential need for eventual revision of the prosthetic. Surgeon: Sun Wu Optical Engineering Manager: Alexander Courtney Anesthesia Type: General and Spinal Operative Notes Findings: No evidence of femoral stem loosening, moderate synovitis, some inflammation in the acetabular lining with articular cartilage loss, no evidence of infection, adequate stability Closure Type: primary Specimen(s): other (Fluid for culture and tissue for culture and sensitivity) Prosthetic devices, grafts, tissues, transplants, or devices: [employer]hew R3 cup size 50, dual mobility liner 38 x 28 inner liner, ceramic Biolox delta +5 Depuy head,two 6.5 mm screws Estimated Blood Loss (mL): 200 Blood products transfused: none Discharge Providers Provider Date of admission: 11/15/23 06:11 Discharge Date: 11/16/23 Primary care physician: Rodney Morales MD Consults: 11/15/23 06:00 Consult to Anesthesiology Routine Comment: Consulting Provider: Anesthesiologist Reason for consultation: Regional block for post operative pain control 11/15/23 10:32 Consult to Discharge Planning Routine Comment: Consult to Occupational Therapy Evaluate & Treat Comment: Physician Instructions: Evaluate and treat Consult to Physical Therapy Evaluate & Treat Comment: Physician Instructions: post op DONNA protocol 11/15/23 12:37 Consult to Dietitian, Adult Routine Comment: Reason For Exam: weight loss 23 lbs in a year d/t colitis Discharge provider: Sherry Cardona PA-C Summary Hospital Course Discharge Diagnosis: History of left hip unipolar for femoral neck fracture 19 years ago with secondary osteoarthritis acetabulum, s/p conversion to total hip arthroplasty Hospital Course: Ms Mckenzie'angela hospital course was unremarkable. She has hearing impairment secondary to tinnitus, and said this was quite severe following surgery but is much better now. On the morning of POD# 1, she was eating and voiding without difficulty and her pain was well-controlled with oral medication. She had been evaluated by PT and they felt she was safe for discharge home; plan is for caregiver training around 0900 today. [place] if [place]. Exam Vital Signs (past 8 hours): Oxygen Delivery Method Room Air Oxygen Flow Rate 0 Narrative Exam Narrative: 4/5 strength in hip flexors, quadriceps, hamstrings; 5/5 DF, PF, EHL on left. Sensation to light touch intact throughout LLE; calf soft and compressible. Aquacel dressing w/ scant bloody drainage. [facility] Medical History Anxiety Lymphocytic colitis Palpitations Usher syndrome (~1979) Fractures (~2004) Mumps Measles Chicken pox Tinnitus Hemorrhoid Surgical History History of hymenectomy (1970) H/O tooth extraction (10/2023) History of open reduction and internal fixation (ORIF) procedure (11/23/22) History of cochlear implant (~2014) History of cataract removal with insertion of prosthetic lens (~2010) History of hip replacement (~2004) Status post dilation and curettage History of tonsillectomy Family History Father Heart disease Cardiac arrhythmia Mother Cancer Hypertension Mental health problem Parkinson disease Grandfather Larynx cancer Grandmother Breast cancer Sister Age: 69 Mental health problem Usher syndrome Social History household members: spouse Smoking Status: Former smoker alcohol intake: current Discharge Assessment & Plan Assessment and Plan Assessment: History of left hip unipolar for femoral neck fracture 19 years ago with secondary osteoarthritis acetabulum, s/p conversion to total hip arthroplasty Plan of Treatment: Discharge home, multimodal pain control (pt has rxs), ASA 81mg BID for VTE prophylaxis, outpt PT, f/u in office in 2 weeks as scheduled. Discharge Plan Discharge Plan Patient Disposition: Home Discharge orders & Medications Prescriptions: Continued acetaminophen 500 mg Tablet 500 mg PO DAILY PRN (Reason: Pain) ibuprofen [Advil] 200 mg Tablet 200 mg PO DAILY PRN (Reason: Pain) Follow up/Referrals: Sun Wu MD [Physician] - 11/26/23 1:30 pm (Follow up w/ Margarette Vela PA-C, at [facility] office in [place].) Rodney Morales MD [Primary Care Provider] - Diet/Activity/Treatments Diet: Diet as Tolerated Activity: Weightbearing as tolerated. Posterior hip precautions. Cold/Heat Therapy: Ice to hip as needed for pain. Skin/Wound/Dressing Care Report to your healthcare provider any signs of infection, such as:: chills, fever, night sweats, unusual drainage and unusual redness Dressing: May shower. Leave dressing in place until follow up in office. No bathing or otherwise soaking incision. Call the office if the dressing becomes saturated inside. Visit Report/Discharge Packet Instructions: DI for Hip Replacement, DI for Prescription Opioid Use Stand Alone Forms: Patient Portal/API, Stroke Signs & Symptoms, Surgery Discharge Discharge Data Primary Care Provider: Rodney Morales
[2023-11-16 07:13] LABS: Hematocrit 30.4 % (36-46); Hemoglobin 10.4 g/dL (12.0-16.0)
[2023-11-16 08:00] VITALS: BP 114/48; PULSE 64; RESP 18; TEMP 36.1; O2SAT 100
--- NOTE | 2023-11-16 08:46 | CM.DANOTE ---
Addendum entered by NEREYDA Sotelo 11/16/23 12:42: ADD: Patient does not have a reservation for an [facility] ferry today and requests a priority board pass so does not have to sit in ferry line r/t pain and lethargy. Priority board pass completed for patient on [facility] website. Copy provided to patient. Transport via spouse. Original Note: Initial DCP Assessment Note Pt is a 73 yo female, resident of [place], History of left hip unipolar for femoral neck fracture, now s/p conversion to total hip arthroplasty PCP: Rodney Morales Payer: MCR Reviewed chart; Therapy has cleared pt for return home w/family to assist and pt has planned for home, DC order from Ortho has already been initiated this morning. No barriers identified at this time to patient's safe discharge home w/family to assist; close outpatient f/u recommended. CM team will plan to follow clinical course closely in case any DC needs or concerns arise. NEREYDA Mclaughlin Discharge Planning/Care Management CM Discharge Assessment Start: 11/16/23 08:44 Freq: Status: Active Protocol: Document 11/16/23 08:45 ANNETTE (Rec: 11/16/23 08:46 ANNETTE [id number]) Discharge Planning Assessment Assigned Equipment Records Supervisor NEREYDA An DPOA/Assigned Designee Name Evgeny () Contact Information [phone] Advance Directives? Yes Advance Directives on File No History Provided By Patient,Medical Record Prior Living Arrangements House Household Members spouse Type of transportation used prior to Relies on Others admit Independent with ADL's Yes: MOD I Is patient alert and oriented? Yes Needs Assistance With Bathing,Meal Prep,Home Chores / Shopping Patient/Family Preference OP PT Therapy Barriers to Discharge No Discharge Plan Home Transportation Arrangement Spouse Referrals Initiated None needed
[2023-11-16] MEDS: ASPIRIN EC 81 MG TABLET PO (08:53)
[2023-11-16] MEDS: OXYCODONE IR 5 MG TABLET PO (08:53)
--- NOTE | 2023-11-16 09:00 | PT.IPTN ---
Current Diagnoses Unilateral post-traumatic osteoarthritis, left hip (11/15/23) Pain due to internal orthopedic prosthetic devices, implants and grafts, initial encounter (11/15/23) Surgery Performed Operation Date: 11/15/23 07:45 Actual Procedures p coversion, hemiarthoplasty, previous, hip, to total arthoplasty(Left) - Sun Wu MD Physical Therapy Treatment Note M2 PT-IP Current Condition Start: 11/15/23 12:10 Freq: NEEDED Status: Active Protocol: Document 11/15/23 12:50 MB (Rec: 11/15/23 13:39 MB [id number]) Physical Therapy Current Condition Current Condition Evaluation Date 11/15/23 Treatment Diagnosis Left posterior DONNA M3 PT-IP Subjective Start: 11/15/23 12:10 Freq: NEEDED Status: Active Protocol: Document 11/16/23 09:24 TS (Rec: 11/16/23 09:40 TS [id number]) Subjective Physical Therapy Visit Type Type Treatment Note Visit Start Time 09:00 Visit Stop Time 09:23 Number of SAS PROGRAMMER Visits 1 Physical Therapy Visit Comments Patient Comments Pt found resting in bed, spouse is in room, pt is agreeable to PT. Therapy Pain Assessment Pain When Pain Assessed At Rest Pain Present Pain Present Pain Reported M4 PT-IP Mobility and Gait Start: 11/15/23 12:10 Freq: NEEDED Status: Active Protocol: Document 11/16/23 09:24 TS (Rec: 11/16/23 09:40 TS [id number]) PT-Bed Mobility Assessment Supine to Sit Supine to Sit Standby Assistance,Head of Bed Elevated Scooting Scooting to Edge of Bed Standby Assistance PT-Transfer Assessment Sit to and From Stand Sit to and from Stand Standby Assistance Equipment Transfer Assistive Device Gait Belt,Front Wheeled Walker Orthotic/Prosthetic Devices or Brace: No Comments Mobility Comments Pt recalled 1/3 hip precautions prior to mobility, recalled 3/3 at end of session. Supine to sit with HOB elevated SBA. STS from bed x1 with no AD SBA, pt impulsive to stand before therapist was ready, instructed pt to sit back down . Spouse was instructed in and performed donning of gait belt. STS from bed with FWW SBA from spouse. She ambulated in the room ~50'SBA with FWW. Due to poor vision pt does bump into obstacles with gait. She performed steps x5 CGA with spouse and use of FWW and cues for proper sequencing. Pt was educated on intensity and frequency of post-op ex. Pt was left in chair, all needs met. Gait Assessment Gait Gait Assistance Required: Standby Assistance Distance (Feet) 50 Assistive Devices Assistive Device Front Wheeled Walker Orthotic/Prosthetic Devices or Brace: No Gait Deviations General Gait Pattern Antalgic,Decreased Stride Length,Decreased Feet Clearance,Step-to Gait Factors Limiting Gait Function Factors Limiting Gait Function Decreased Activity Tolerance, Decreased Strength,Pain,Poor Balance,Poor Safety Awareness Comments Gait Comments See mobility comments Stair Climbing Assessment Evaluation Level of Assist On Stairs Contact Guard Assistance,1 Person Assistance Devices Stair Climbing Assistive Devices Front Wheel Walker Technique/Endurance Stair Climbing Direction Ascend and Descend Stair Climbing Technique Step to Step Number of Steps Climbed 5 Comments Stair Climbing Comments See mobility comments PT-Balance Assessment Sitting Balance and Reactions Static Sitting Balance Ability Good Dynamic Sitting Balance Ability Good Standing Balance and Reactions Static Standing Balance Ability Fair Dynamic Standing Balance Ability Fair Device Used FWW M5 PT-IP Objective Assessments Start: 11/15/23 12:10 Freq: NEEDED Status: Active Protocol: Document 11/15/23 12:50 MB (Rec: 11/15/23 13:39 MB [id number]) Orientation Orientation/Cognition Level of Alertness Alert Orientation Name,Birthday,Situation Language Function Ability Hard of Hearing Safety Awareness Decreased Safety Awareness Memory Description No Deficits Noted Gross Range of Motion Upper Extremity ROM Impairments Defer to OT Lower Extremity ROM Assessment Left Impaired Impairments Ankle and knee functional Strength Lower Extremity Strength Assessment Left Impaired Hip Left not tested post-op Knee Functional Ankle Functional M6 PT-IP Treatment Start: 11/15/23 12:10 Freq: NEEDED Status: Active Protocol: Document 11/16/23 09:24 TS (Rec: 11/16/23 09:40 TS [id number]) Physical Therapy Treatment Education Education Provided Precautions,Weight Bearing Status,Post-Op Packet,Safety M7 PT-IP Assessment and Plan Start: 11/15/23 12:10 Freq: NEEDED Status: Active Protocol: Document 11/16/23 09:24 TS (Rec: 11/16/23 09:40 TS [id number]) PT Summary Assessment and Plan Potential Rehabilitation Potential Good Summary Impairments Pain,ROM,Strength,Balance, Sensation,Bed Mobility, Transfers,Gait,Activity Tolerance Progress Towards Goals Slow Progress due to Activity Tolerance Assessment Summary Vonnie is making good progress with her mobility. She is SBA for all bed mobility and STS with/without FWW. She progressed her gait to ~50 SBA with FWW. She tends to bump into objects in the room due to poor vision. She progressed to stairs x5 with FWW and CGA from spouse. Spouse was instructed in and performed donning of gait belt, STS, gait and stair training. PT is recommending home with 24/7 assist. Goals Bed Mobility Goal Independent Transfer Goal Independent,Front Wheeled Walker Gait Goal Independent,Front Wheel Walker Gait Distance 100 Other Goals Pt will ascend and descend threshold/terrace-type step x3 to mimic steps to get into home with RW and no more than CGA. Days to Meet Goals 3 Frequency of Treatment Frequency Of Treatment Twice a Day Treatment Plan Physical Therapy Treatment Plan Bed Mobility Training,Transfer Training,Gait Training, Therapeutic Exercise,Balance Retraining,Post Op Education, Discharge Planning, Neuromuscular Re-ed Precautions Posterior Hip Precautions No Hip Flexion > 90 degrees,No Hip Internal Rotation,No Hip Adduction Weight Bearing Status Weight Bearing Status Weight Bear as Tolerated Recommendations To Nursing Amount of Assist Needed 1 Person Assist Discharge Recommendations PT Discharge Recommendations Home with 24/7 Assist Available,Outpatient PT Transportation Needs at Discharge Private Vehicle
--- NOTE | 2023-11-16 09:55 | OT.IP.TRT ---
Current Diagnoses Unilateral post-traumatic osteoarthritis, left hip (11/15/23) Pain due to internal orthopedic prosthetic devices, implants and grafts, initial encounter (11/15/23) Surgery Performed Operation Date: 11/15/23 07:45 Actual Procedures p coversion, hemiarthoplasty, previous, hip, to total arthoplasty(Left) - Sun Wu MD Occupational Therapy Treatment Note M2 OT-IP Current Condition Start: 11/15/23 13:57 Freq: Status: Active Protocol: Document 11/15/23 13:58 [facility] (Rec: 11/15/23 14:20 [facility] [id number]) Occupational Therapy Current Condition Current Condition Evaluation Date 11/15/23 Treatment Diagnosis S/P L DONNA posterior approach Diagnosis Onset Date 11/15/23 Post Operative Precautions Posterior Hip Precautions No Hip Flexion > 90 degrees,No Hip Internal Rotation,No Hip Adduction M3 OT- IP Subjective and Pain Start: 11/15/23 13:57 Freq: Status: Active Protocol: Document 11/16/23 11:20 [facility] (Rec: 11/16/23 11:28 [facility] [id number]) OT- Subjective Occupational Therapy Visit Type Type Treatment Note Visit Start Time 09:25 Visit Stop Time 09:55 Occupational Therapy Visit Comments Patient Comments Pt's present for caregiver training. Patient/Caregiver Goals To go home. OT Pain Assessment Pain When Pain Assessed During Mobility Pain Present Pain Present Pain Reported M4 OT- IP ADL's Start: 11/15/23 13:57 Freq: Status: Active Protocol: Document 11/16/23 11:20 [facility] (Rec: 11/16/23 11:28 [facility] [id number]) OT [id number] Comments OT Self-Feeding Comments Not at meal time. OT ADL-Grooming Comments OT Grooming Comments Not performed. OT ADL-Oral Care Comments Oral Care Comments Not performed. OT ADL-Dressing General Eval Lower Body Dressing Ability Maximum Assistance Areas Needing Assistance Underpants/Brief,Socks Comments OT Dressing Comments Able to go over posterior hip precautions with pt's as due to her poor vision he will be needing to assist her at all times for ADL and mobility needs. OT ADL-Toileting Comments OT Toileting Comments Spoke of standing to wipe and use of wet ones. Emphasized the pt's to help with her balance as she does all her hygiene needs. OT ADL-Bathing Comments OT Bathing Comments Spoke of getting a tub bench and HHSP so pt better able to follow her hip precautions. Spoke of care of dressing during showering needs. M5 OT- IP IADL's Start: 11/15/23 13:57 Freq: Status: Active Protocol: Document 11/15/23 13:58 [facility] (Rec: 11/15/23 14:20 [facility] [id number]) OT-Instrumental Activities of Daily Living Deficits IADL Deficits Identified Deficits Home Safety Awareness Awareness of Need for Assistance at Home Good Awareness Home Safety Comments Do to pt's poor vision and decreased balance , pt's will have to assist with most of her needs at this time. Meal Preparation Meal Preparation Caregiver Provides Assist Guitar Instructor Guitar Instructor Caregiver Provides Assist M6 OT- IP Functional Cognition Start: 11/15/23 13:57 Freq: Status: Active Protocol: Document 11/16/23 11:20 [facility] (Rec: 11/16/23 11:28 [facility] [id number]) Cognitive Factors Limiting Selfcare Function Cognitive Comments Cognitive Assessment Comments Pt still needing occasional vc for safety to be able to follow her hip precautions during ADl and mobility needs. Pt's has good understanding how to assist pt and able to demonstrate while assisting to get her dressed. M7 OT- IP Mobility and Balance Start: 11/15/23 13:57 Freq: Status: Active Protocol: Document 11/16/23 11:20 [facility] (Rec: 11/16/23 11:28 [facility] [id number]) OT-Transfer Assessment Sit to and From Stand Sit to and from Stand Contact Guard Assistance Comments Mobility Comments Pt's able to assist her to stand. ALso educated if not having a gait belt how to assist her at her waist if needed. OT- Balance Assessment Sitting Balance and Reactions Static Sitting Balance Ability Normal Dynamic Sitting Balance Ability Good Standing Balance and Reactions Static Standing Balance Ability Fair M8 OT- IP Objective Assessments Start: 11/15/23 13:57 Freq: Status: Active Protocol: Document 11/15/23 13:58 [facility] (Rec: 11/15/23 14:20 [facility] [id number]) OT Gross Range of Motion Upper Extremity Range of Motion Assessment Within Functional Limits OT Strength Upper Extremity Strength Assessment Within Functional Limits M9 OT- IP Assessment and Plan Start: 11/15/23 13:57 Freq: Status: Active Protocol: Document 11/16/23 11:20 [facility] (Rec: 11/16/23 11:28 [facility] [id number]) OT Summary Assessment and Plan Potential Rehabilitation Potential Excellent Analytic Complexity at Evaluation Low Summary OT Impairments Pain,Balance,Functional Mobility,Dressing,Toileting, Bathing,Toilet Transfers, Shower Transfers Progress Towards Goals Progressing Toward Goals Assessment Summary Pt's here for caregiver training for all ADL and mobility needs including car transfers and states good understanding to be able to assist pt for all ADl and mobility needs. Pt to have 24/ 7 assist and outpt PT. Goals Self-Feeding Goal Standby Assistance Grooming Goal Standby Assistance Dressing Goal Moderate Assistance Toileting Goal Minimal Assistance Bathing Goal Moderate Assistance Toilet Transfer Goal Contact Guard Assistance Shower Transfer Goal Minimal Assistance Patient/Caregiver Education Goal Demonstrate Post-Op Precautions,Caregiver Independent Assisting Patient Days to Meet Goals 3 Frequency of Treatment Frequency Of Treatment Once a Day Treatment Plan OT Treatment Plan ADL Training,Functional Mobility,Patient/Family Education,Discharge Planning Discharge Recommendations OT Discharge Recommendations Home with 24/7 Assist Available,Outpatient PT Home Equipment Needs Tub bench, hand held shower spray
--- NOTE | 2023-11-16 10:55 | DIET.CONS ---
Dietary Consultation Note Admission Date: 11/15/2023 06:11 Assessment: 73 y F admitted s/p conversion to total hip arthroplasty. Nutrition consulted for 23 lb weight loss. Met with pt at bedside. She noted weight loss 1.5-1 yr ago d/t colitis. Has since changed her diet to reduce gluten, lactose, and increased fiber intake including Metamucil. Weight has since stabilized at 130 lb (59 kg) for last few months. Has a hearty appetite with adequate intake per recall and reduced incidences of diarrhea. RN reports she has been eating well during stay, recorded po intakes 75%. Has questions regarding probiotics. Questions addressed. Ht: 170.18 cm Wt: 57.606 kg BMI: 19.8 UBW: 68.2 kg 1-1.5 yrs ago (15.5% loss in 1 yr, non-severe); 59 kg pt reported UBW Last BM: 11/14/23 (11/15/23 12:32) MNA: 10 Feng Score: 20 Diet: 11/15/23 Lunch General (Regular) Diet Diet Modifications: Nutrition Percent Meal Consumed 75% 11/15/23 18:00 Percent Meal Consumed 75% 11/15/23 18:00 Labs: Hgb 10.4 g/dL (12.0-16.0) L 11/16/23 06:00 Hct 30.4 % (36-46) L 11/16/23 06:00 Nutrition Diagnosis: Unintentional weight loss r/t altercations in GI tract/structure aeb 15.5% weight loss in 1-1.5 yrs (non-significant) and reported colitis Interventions: 1. Encouraged/discussed adequate intake Monitoring/Evaluations: f/u prn, pt d/c today Electronically Signed by: Sabra Denton 11/16/23 10:55 Clinical Dietitian [address] [address]
--- NOTE | 2023-11-16 15:04 | PC.NURSE ---
Patient A&OX4, VSS, RA. She is medically cleared for discharge home after career law clerk training with today at 0900. She verbalizes understanding of medications, posterior hip precautions, s/sx of infection, site care as well as follow up appointment. She is escorted via w/ch by RN with all of her belongings including FWW to private vehicle with her for discharge home to [facility] at approximately 1215 pm.
--- NOTE | 2023-11-27 08:53 | SUR.PHASEI ---
Oxycodone 5mg was given at 10:10 for pain.
== END 2023-11-16 12:15 | disposition home or self-care (01) | DRG 468 ==
PROVIDERS: Admitting Provider Orthopaedic Surgery; PCP Family Medicine; Referring Provider Orthopaedic Surgery; Visit Provider Orthopaedic Surgery
PROC: 0SRS0JA Replacement of Left Hip Joint, Femoral Surface with Synthetic Substitute, Uncemented, Open Approach (ICD-10-PCS; principal; 2023-11-15 07:45)
DX: T84.84XA Pain due to internal orthopedic prosthetic devices, implants and grafts, initial encounter (principal); M16.52 Unilateral post-traumatic osteoarthritis, left hip; M65.852 Other synovitis and tenosynovitis, left thigh; H93.19 Tinnitus, unspecified ear; Z96.642 Presence of left artificial hip joint
CPT/HCPCS: 36415; 72170; 73502; 85014; 85018; 87070; 87075; 87176; 87205; 97116; 97161; 97165; 97530; 97535; C1776; A9270; C9290; J0171; J0690; J1100; J2250; J2405; J2704; J3010